=== PATIENT | female | born 1995 | race Caucasian/White ===

== ENCOUNTER 2022-08-01 12:19 | Inpatient (IN) | payer OTHER ==
[2022-08-01 13:13] VITALS: BMI 23.8
[2022-08-01] MEDS ORDERED: hydrALAZINE 20 MG/ML VIAL SLOW IVP PRN (14:08)
[2022-08-01] MEDS ORDERED: Diphenoxylate HCl/Atropine Tablet PO PRN (14:08)
[2022-08-01] MEDS ORDERED: Lidocaine 1% (PF) 30 ML VIAL SC PRN (14:08)
[2022-08-01] MEDS ORDERED: Acetaminophen 500 MG TAB PO PRN (14:08)
[2022-08-01] MEDS ORDERED: Carboprost 250 MCG/ML AMP IM PRN (14:08)
[2022-08-01] MEDS ORDERED: Ondansetron PF 4 MG/2 ML Vial IVP PRN ×2 (14:08→16:18)
[2022-08-01] MEDS ORDERED: Methylergonovine 0.2 MG/ML VIAL IM PRN (14:08)
[2022-08-01] MEDS ORDERED: Promethazine HCl 25 MG/ML VIAL IM PRN ×2 (14:08→16:18)
[2022-08-01] MEDS ORDERED: Misoprostol 200 MCG TAB PR PRN (14:08)
[2022-08-01] MEDS ORDERED: fentaNYL 50 mcg/mL 1 mL Vial SLOW IVP PRN (14:08)
[2022-08-01] MEDS ORDERED: NS w/ Oxytocin 30 units 500 ML IV SCH ×2 (14:15)
[2022-08-01] MEDS ORDERED: Lactated Ringer's 1,000 ML IV SCH (14:15)
[2022-08-01 14:50] LABS: Hemoglobin 13.5 g/dL (12.0-15.5); Mean Corpuscular HGB CONC 34.7 g/dL (32.0-36.0); Mean Corpuscular Hemoglobin 31.8 pg (27.0-33.0); Mean Corpuscular Volume 91.5 fl (81.6-98.3); Mean Platelet Volume 9.2 fl (7.4-10.4); Platelet Count 209 10x3/uL (150-450); RBC Distribution Width 13.2 % (11.5-14.5); Red Blood Cell (RBC) Count 4.25 10x6/uL (3.90-5.03); White Blood Cell (WBC) Count 11.5 10x3/uL (3.5-10.5)
[2022-08-01] MEDS ORDERED: fentaNYL/Ropivacaine Epidural 100 ML ONE (15:11)
[2022-08-01 15:28] LABS: HBSAg Index 0.14 S/CO (0-0.99); Hep B Surf Ag - L&D Non-Reactive S/CO (NonReactive)
[2022-08-01 15:29] LABS: HIV (1/2) Antibody/Antigen Non-Reactive (NonReactive); HIV 1/2 INDEX 0.09 S/CO (<1.00)
[2022-08-01 15:30] LABS: Syphilis Antibody Nonreactive (Nonreactive); Syphilis Antibody Index 0.04 S/CO (<1.00 Non-Reactive)
[2022-08-01] MEDS ORDERED: diphenhydrAMINE 50 MG/ML VIAL IVP PRN (16:18)
[2022-08-01] MEDS ORDERED: Lactated Ringer's 500 ML IV PRN (16:18)
[2022-08-01] MEDS ORDERED: Naloxone HCl 0.4 mg/ml Vial IVP PRN ×2 (16:18)
[2022-08-01] MEDS ORDERED: Acetaminophen 325 MG TAB PO PRN (16:18)
[2022-08-01] MEDS ORDERED: Moisturizing Cream (Eucerin) 113 GM JAR TOP PRN (16:18)
[2022-08-01] MEDS ORDERED: ePHEDrine Sulfate 50 MG/10 ML VIAL SLOW IVP PRN (16:18)
[2022-08-01] MEDS ORDERED: Communication Order-Pharmacy FS SCH (16:30)
[2022-08-01] MEDS ORDERED: fentaNYL 2 mcg/Ropivacaine 0.2% Epidural 100 ML CADD EPIDURAL SCH (16:30)
[2022-08-02] MEDS ORDERED: Ibuprofen 800 MG TAB PO SCH ×2 (00:15→08:30)
[2022-08-02] MEDS ORDERED: Milk Of Magnesia 30 ML UDCUP PO PRN (02:13)
[2022-08-02] MEDS ORDERED: Boostrix 0.5 ML (Tdap) VIAL (>/=7 yrs of age) IM ONE (02:13)
[2022-08-02] MEDS ORDERED: Bisacodyl 10 MG SUPP PR PRN (02:13)
[2022-08-02] MEDS ORDERED: Misoprostol 200 MCG TAB VAG PRN (02:13)
[2022-08-02] MEDS ORDERED: Methylergonovine 0.2 MG/ML VIAL IM PRN (02:13)
[2022-08-02] MEDS ORDERED: Benzocaine-Menthol 82.5 ML CAN TOP PRN (02:13)
[2022-08-02] MEDS ORDERED: hydrALAZINE 20 MG/ML VIAL SLOW IVP PRN (02:13)
[2022-08-02] MEDS ORDERED: Lanolin Ointment 7 GM TUBE TOP PRN (02:13)
[2022-08-02] MEDS ORDERED: Promethazine HCl 25 MG/ML VIAL IM PRN (02:13)
[2022-08-02] MEDS ORDERED: Ondansetron PF 4 MG/2 ML Vial IVP PRN (02:13)
[2022-08-02] MEDS ORDERED: NS w/ Oxytocin 30 units 500 ML IV SCH (02:30)
[2022-08-02] MEDS ORDERED: Ferrous Sulfate 325 MG TAB PO SCH (08:00)
[2022-08-02] MEDS ORDERED: Prenatal Vitamin 1 TAB PO SCH (09:00)
[2022-08-02] MEDS ORDERED: Docusate 100 MG CAP PO SCH (09:00)
[2022-08-02] MEDS ORDERED: Witch Hazel-Glycerin 1 EACH JAR TOP PRN (11:48)
[2022-08-02] MEDS ORDERED: ePHEDrine Sulfate 50 MG/10 ML VIAL ONE (14:02)
[2022-08-02] MEDS ORDERED: Bupivacaine 0.25% HCL 30 ML VIAL ONE (14:02)
[2022-08-02 14:24] VITALS: BP 110/60; TEMP 97.9
== END 2022-08-02 14:20 | disposition home or self-care (01) | DRG 807 ==
LOC: CSHLD 12:19 → CSHPP 08-02 01:50
PROVIDERS: ADMIT Student in an Organized Health Care Education/Training Program; ATTEND Student in an Organized Health Care Education/Training Program
PROC: 10E0XZZ Delivery of Products of Conception, External Approach (ICD-10-PCS; principal; 2022-08-01)
PROC: 0HQ9XZZ Repair Perineum Skin, External Approach (ICD-10-PCS; 2022-08-01)
PROC: 0UQMXZZ Repair Vulva, External Approach (ICD-10-PCS; 2022-08-01)
DX: O34.211 Maternal care for low transverse scar from previous cesarean delivery (principal); Z37.0 Single live birth; Z3A.38 38 weeks gestation of pregnancy; O76 Abnormality in fetal heart rate and rhythm complicating labor and delivery; O70.0 First degree perineal laceration during delivery; O71.82 Other specified trauma to perineum and vulva
CPT/HCPCS: 36415; 85027; 86780; 86850; 86900; 86901; 87340; 87389; J2590; J7120; S0020